=== PATIENT | male | born 1990 | race Caucasian/White ===

== ENCOUNTER 2023-05-27 09:45 | Emergency (ER) | payer BC, OTHER, SELFPAY ==
[2023-05-27] VITALS (9 sets, daily range): BP systolic 135–144; BP diastolic 62–70; PULSE 50–66; RESP 16; TEMP 36.7; O2SAT 95–99; BMI 35.4
--- NOTE | 2023-05-27 09:50 | PC.NURSE ---
0948: attempted to triage pt, he is in the bathroom. Registration will alert when he returns to waiting area.
--- NOTE | 2023-05-27 10:10 | ED_ITS ---
HPI - Headache General Chief Complaint: Headache Stated Complaint: severe headache T-7/ High BP/N/Jaw pain Time Seen by Provider: 05/27/23 09:57 Source: patient Mode of arrival: Ambulatory History of Present Illness HPI Narrative: Patient is a 33-year-old male who is here for evaluation of approximately 7 days of a headache. At the beginning of the symptoms he did have upper respiratory tract infection like symptoms but that has resolved. He is also had some nausea. He stated that he was having some high blood pressure this morning and some jaw discomfort. He is no diagnosed history of hypertension. He does take a [id number] testosterone supplement but no other medications. No fevers. No diarrhea but does state he is having some loose stools. No problems with urinating. Has not tried anything for his symptoms prior to arrival. Related Data Home Medications Medication Instructions Recorded Confirmed No Known Home Medications 05/27/23 05/27/23 Allergies Allergy/AdvReac Type Severity Reaction Status Date / Time No Known Drug Allergies Allergy Verified 05/27/23 10:01 Review of Systems Constitutional Constitutional: Reports system reviewed and no additional complaints, except as documented ENT Ears, Nose, Mouth, and Throat: Reports system reviewed and no additional complaints, except as documented Cardiovascular Cardiovascular: Reports system reviewed and no additional complaints, except as documented Respiratory Respiratory: Reports system reviewed and no additional complaints, except as documented Genitourinary Genitourinary: Reports system reviewed and no additional complaints, except as documented Integumentary/Breasts Skin/Breast: Reports system reviewed and no additional complaints, except as documented Neurologic Neurologic: Reports system reviewed and no additional complaints, except as documented Hematologic/Lymphatic On Anticoagulants: No Patient History Social History Smoking Status: Current every day smoker Smoking Status: Current every day smoker alcohol intake frequency: 0-2 drinks per day Substance Use Type: does not use Exam Initial Vital Signs Initial Vital Signs: Vital Signs Temperature 98.1 F 05/27/23 09:55 Pulse Rate 66 05/27/23 09:55 Respiratory Rate 16 05/27/23 09:55 Blood Pressure 144/70 H 05/27/23 09:55 Pulse Oximetry 99 05/27/23 09:55 Oxygen Delivery Method Room Air 05/27/23 09:55 [facility] Head: normal to inspection and normocephalic Chest Chest: normal inspection of the chest Resp Effort & Inspection: normal respiratory effort Auscultation: clear to auscultation bilaterally Cardio Rate: regular rate Rhythm: regular rhythm Skin General: no rashes or lesions noted Neuro General: patient alert, patient awake and moves all extremities Other: No meningeal signs Course Orders Ordered: ED Orders 05/27/23 10:02 EKG-12 Lead Stat 05/27/23 10:15 Complete Blood Count AUTO DIFF Stat Comprehensive Metabolic Panel Stat Lipase Stat Discontinued Medications Sodium Chloride (Normal Saline 0.9%) 1,000 mls @ 1,000 mls/hr IV BOLUS ONE Stop: 05/27/23 11:08 Last Infusion: 05/27/23 12:44 Dose: 0 mls/hr Documented By: Infusion: 05/27/23 11:53 Dose: 999 mls/hr Documented By: Admin: 05/27/23 10:36 Dose: 1,000 mls/hr Documented By: GONZALO Ketorolac Tromethamine (Ketorolac 30 Mg/Ml Vial) 30 mg IV NOW ONE Stop: 05/27/23 10:10 Last Admin: 05/27/23 10:35 Dose: 30 mg Documented By: GONZALO Ondansetron HCl (Ondansetron 4 Mg/2 Ml Inj) 4 mg IV NOW ONE Stop: 05/27/23 10:10 Last Admin: 05/27/23 10:37 Dose: Not Given Documented By: GONZALO Vital Signs Vital signs: Vital Signs - 8 hr 05/27/23 09:55 05/27/23 10:19 05/27/23 10:30 Temperature 98.1 F Pulse Rate 66 55 L 53 L Respiratory Rate 16 Blood Pressure 144/70 H Pulse Oximetry 99 97 97 Oxygen Delivery Method Room Air 05/27/23 11:00 05/27/23 11:00 05/27/23 11:30 Temperature Pulse Rate 56 L 54 L Respiratory Rate Blood Pressure 140/68 Pulse Oximetry 95 95 Oxygen Delivery Method MDM - Headache Lab Data Attestation: I reviewed the patient's lab results. 05/27/23 10:15 05/27/23 10:15 Labs: Lab Results 05/27/23 05/27/23 Range/Units 10:15 10:15 WBC 5.6 (4.5-11.0) X10^3/uL RBC 4.73 (4.5-5.9) X10^6/uL Hgb 13.9 (13.5-17.5) g/dL Hct 41.7 (41-53) % MCV 88.1 (80-100) fL MCH 29.4 (26-34) PG MCHC 33.3 (30-36) % RDW 15.0 H (11.6-14.8) % Plt Count 328 (150-400) X10^3/uL Neut % (Auto) 51.5 (50-75) % Lymph % (Auto) 36.1 (25-40) % Bollinger % (Auto) 9.8 (3-14) % Eos % (Auto) 1.9 L (2-4) % Baso % (Auto) 0.7 (0-2) % Neut # (Auto) 2900 (1378-6885) /uL Lymph # (Auto) 2000 (1166-0577) /uL Bollinger # (Auto) 500 (0-900) /uL Eos # (Auto) 100 (0-450) /uL Baso # (Auto) 0 (0-100) /uL Sodium 137 (137-145) mmol/L Potassium 4.4 (3.4-5.1) mmol/L Chloride 103 (98-107) mmol/L Carbon Dioxide 26 (22-32) mmol/L BUN 12 (9-20) mg/dL Creatinine 0.95 (0.66-1.25) mg/dL Estimated GFR > 60 (>60) mL/min BUN/Creatinine Ratio 12.6 (6-22) Glucose 87 (70-100) mg/dL Calcium 9.6 (8.4-10.2) mg/dL Total Bilirubin 0.5 (0.2-1.3) mg/dL AST 39 (17-59) IU/L ALT 33 (<50) IU/L Alkaline Phosphatase 37 L (38-126) U/L Total Protein 7.0 (6.3-8.2) g/dL Albumin 4.2 (3.5-5.0) g/dL Globulin 2.8 (1.7-4.1) g/dL Albumin/Globulin Ratio 1.5 (1.0-2.8) Lipase 209 (23-300) U/L ECG Data Attestation: I personally reviewed and interpreted this ECG as follows: Interpretation: Sinus bradycardia Ventricular rate of 59 Normal axis Normal QRS Normal QTC No ST T wave changes MDM Narrative Medical decision making narrative: Low suspicion for meningitis or CVA or TIA. Patient does feel somewhat better after medications here in the ER. Labs unremarkable. No indication for radiologic studies. Will discharge patient home. We did discuss that he should potentially stop taking the testosterone. He was given return precautions. He expressed understanding and agreement. Discharge Plan Departure Patient Disposition: Home Clinical Impression: Headache Instructions: DI for Headache Activity Restrictions/Additional Instructions: I do recommend that you to try to increase your fluid intake. You can take Tylenol and/or ibuprofen for any headaches. I do recommend that you stop using the testosterone is at maybe adding to your headache. Contact your primary doctor for follow-up. Return to the emergency department for new or worsening symptoms. Prescriptions: No Action No Known Home Medications Referrals: Miscellaneous,[facility] [Primary Care Provider] - Stand Alone Forms: Patient Portal/API
[2023-05-27 10:28] LABS: Add Manual Diff / Slide Review NO; Basophils Absolute Auto 0 /uL (0-100); Basophils Percent Auto 0.7 % (0-2); Eosinophils Absolute Auto 100 /uL (0-450); Eosinophils Percent Auto 1.9 % (2-4); Hematocrit 41.7 % (41-53); Hemoglobin 13.9 g/dL (13.5-17.5); Lymphocytes Absolute Auto 2000 /uL (1100-4500); Lymphocytes Percent Auto 36.1 % (25-40); Mean Corpuscular HGB Conc 33.3 % (30-36); Mean Corpuscular Hemoglobin 29.4 PG (26-34); Mean Corpuscular Volume 88.1 fL (80-100); Monocytes Absolute Auto 500 /uL (0-900); Monocytes Percent Auto 9.8 % (3-14); Neutrophils Absolute Auto 2900 /uL (1500-7000); Neutrophils Percent Auto 51.5 % (50-75); Platelet Count 328 X10^3/uL (150-400); Red Blood Cell Count 4.73 X10^6/uL (4.5-5.9); White Blood Cell Count 5.6 X10^3/uL (4.5-11.0)
[2023-05-27] MEDS: KETOROLAC 30 MG/ML VIAL IV (10:35)
[2023-05-27] MEDS: SODIUM CHLORIDE 0.9% 1,000 ML 1000 ML IV (10:36)
[2023-05-27 10:44] LABS: Alanine Aminotransferase 33 IU/L (<50); Albumin 4.2 g/dL (3.5-5.0); Albumin Globulin Ratio 1.5 (1.0-2.8); Alkaline Phosphatase 37 U/L (38-126); Aspartate Aminotransferase 39 IU/L (17-59); BUN Creatinine Ratio 12.6 (6-22); Bilirubin Total 0.5 mg/dL (0.2-1.3); Blood Urea Nitrogen 12 mg/dL (9-20); Calcium 9.6 mg/dL (8.4-10.2); Carbon Dioxide 26 mmol/L (22-32); Chloride 103 mmol/L (98-107); Estimated Glomerular Filt Rate > 60 mL/min (>60); Globulin 2.8 g/dL (1.7-4.1); Glucose 87 mg/dL (70-100); HEMOLYSIS < 15 (0-50); Lipase 209 U/L (23-300); Potassium 4.4 mmol/L (3.4-5.1); Sodium 137 mmol/L (137-145)
--- NOTE | 2023-05-27 12:03 | PC.NURSE ---
Pt states his kids brought home a sickness a couple weeks ago and he started feeling sick after that. He reports headache 4/10, jaw pain, muscle fatigue and sinus pain. He does admit to abdominal pain after talking with the doctor. Last BM was today, diarrhea.
== END 2023-05-27 13:23 | disposition home or self-care (01) ==
PROVIDERS: Emergency Provider Emergency Medicine
DX: R51.9 Headache, unspecified (principal); R00.1 Bradycardia, unspecified
CPT/HCPCS: 36415; 80053; 83690; 85025; 93005; 96361; 96374; 99284; J1885